=== PATIENT | female | born 1990 | race Caucasian/White ===

== ENCOUNTER 2017-08-12 21:27 | Emergency (ER) | payer OTHER, BC ==
[~2017-08-12] VITALS: Ht 157.5 cm; Wt 93.1 kg
[2017-08-12 21:30] VITALS: TEMP 36.8; Ht 157.5 cm; Wt 93.1 kg
--- NOTE | 2017-08-12 22:08 | DIAGNOSTIC IMAGING REPORT ---
RIGHT HAND 3 VIEWS HISTORY: right hand/5th finger injury COMPARISON: None. FINDINGS: There is no fracture or dislocation. Soft tissues are unremarkable. No radiopaque foreign bodies. IMPRESSION: No fractures. Electronically signed by: Sravan Chen M.D. 08/12/2017 10:07 PM Dictated Date/Time: 08/12/2017 10:03 PM
[2017-08-12] MEDS ORDERED: BCPILLS PO (22:18)
[2017-08-12 22:26] VITALS: BP 116/70; PULSE 86; O2SAT 98
--- NOTE | 2017-08-13 04:06 | EMERGENCY ROOM VISIT NOTE ---
History First contact with patient: 21:43 Chief Complaint: FINGER PAIN Stated Complaint: RT HAND FINGER PAIN History of Present Illness The patient is a 27 year old female who presents to the Emergency Room with complaints of right hand and right fifth finger pain for the past few hours. 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 The patient rates her discomfort a 5/ 10. She has not had previous injury to this hand or finger. She does not have numbness or paresthesias. She has not taken anything [id number] for her discomfort. No pain of the wrist or elbow. Review of Systems More than 10 systems were reviewed and otherwise negative with the exception of history of present illness. Past Medical/Surgical History No chronic medical disease Family History No pertinent family history Social History Smoking Status: Current Every Day Smoker Alcohol Use: occasionally Marital Status: single Occupation Status: employed Current/Historical Medications Scheduled Control Pills ( Control Pills), 1 TAB PO DAILY Physical Exam Vital Signs Date Time Temp Pulse Resp B/P (MAP) Pulse Ox O2 Delivery O2 Flow Rate FiO2 08/12/17 22:26 86 17 116/70 98 08/12/17 21:30 36.8 97 18 116/78 98 Room Air Physical Exam VITALS: Vitals are noted on the nurse's note and reviewed by myself. Vital signs stable. GENERAL: Well-developed, well-nourished, white female, who is in no acute distress and resting comfortably. Patient is cooperative with the examination. HEART: Regular rate and rhythm without murmurs gallops or rubs. LUNGS: Clear to auscultation bilaterally without wheezes, rales or rhonchi. No retractions or accessory muscle use. MUSCULOSKELETAL: No obvious deformity of the right hand or right wrist. No obvious tenderness of the wrist or elbow of the right upper extremity. Tenderness of the right 5th digit is noted, worse at the PIP joint. Neurovascular status is intact. Client Server Developer strength is 4/5. The patient is able to flex and extend against resistance. NEURO: Patient was alert and oriented to person place and time. CN II through XII grossly intact. Medical Decision & Procedures ER Provider Diagnostic Interpretation: RIGHT HAND 3 VIEWS HISTORY: right hand/5th finger injury COMPARISON: None. FINDINGS: There is no fracture or dislocation. Soft tissues are unremarkable. No radiopaque foreign bodies. IMPRESSION: No fractures. ED Course Physical exam and history were performed. Nursing notes, EMR, and Medication List were personally reviewed. Patient appears to have right hand pain after being injured as described above. X-ray was obtained and does not show evidence of fracture or dislocation. The patient injury evidently occurred at work. She is to follow with Workmen's Compensation for ongoing care and evaluation. She will otherwise be treated conservatively with [id number] ibuprofen and Tylenol. She was otherwise invited back to the ER with any new, worsening, or concerning symptoms. The chart was completed utilizing [employer] Speech Voice Recognition Software. Grammatical errors, random word insertions, pronoun errors, and incomplete sentences are an occasional consequence of this system due to software limitations, ambient noise, and hardware issues. Any formal questions or concerns about the content, text, or information contained within the body of this dictation should be directly addressed to the provider for clarification. . Medical Decision Differential diagnosis includes, but is not limited to: Sprain, strain, fracture , dislocation, subluxation, contusion, and others Impression Primary Impression: Injury of right hand Departure Information Dispostion Home / Self-Care Condition FAIR Forms HOME CARE DOCUMENTATION FORM, IMPORTANT VISIT INFORMATION Patient Instructions [facility] Additional Instructions You were seen and evaluated today on an emergency basis only. This is not a substitute for, or an effort to provide, complete comprehensive medical care. It is not possible to recognize and treat all injuries or illnesses in a single emergency department visit. For this reason it is recommended that you followup with your Workmen's Compensation provider for ongoing care and evaluation. For baseline pain relief you may alternate ibuprofen and acetaminophen every 4 hours for pain control. Take 600 mg ibuprofen (Advil) and then 4 hours later take 1000 mg acetaminophen (Tylenol). Do not take more than 3000 mg acetaminophen in a single day. You are welcome to return to the emergency department anytime with new, worsening, or concerning symptoms.
== END 2017-08-12 22:26 | disposition home or self-care (01) ==
LOC: C.EDB 21:28 → C.EDD 22:26
DX: S69.91XA Unspecified injury of right wrist, hand and finger(s), initial encounter (principal); W50.0XXA Accidental hit or strike by another person, initial encounter; Y99.0 Civilian activity done for income or pay; Y93.89 Activity, other specified; Y92.129 Unspecified place in nursing home as the place of occurrence of the external cause; F17.210 Nicotine dependence, cigarettes, uncomplicated; Z79.3 Long term (current) use of hormonal contraceptives